=== PATIENT | male | born 1965 | race Caucasian/White ===

== ENCOUNTER 2016-07-18 14:53 | Emergency (ER) | payer OTHER ==
[2016-07-18] MEDS ORDERED: KETOROLAC 60 MG/2 ML VIAL IVP STA (15:25)
[2016-07-18] MEDS ORDERED: ONDANSETRON 4 MG/2 ML VIAL IVP STA ×2 (15:25→16:39)
[2016-07-18] MEDS ORDERED: HYDROmorphone 1 MG/ML SYRINGE IVP STA ×3 (15:25→16:14)
[2016-07-18] MEDS ORDERED: ONDANSETRON 4 MG/2 ML VIAL ONE ×2 (15:27→16:42)
[2016-07-18] MEDS ORDERED: KETOROLAC 30 MG/ML VIAL ONE (15:27)
[2016-07-18] MEDS ORDERED: HYDROmorphone 1 MG/ML SYRINGE ONE ×3 (15:27→16:18)
[2016-07-18] MEDS ORDERED: TAMSULOSIN 0.4 MG CAPSULE PO STA (16:14)
[2016-07-18] MEDS ORDERED: DEXAMETHASONE 10 MG/ML VIAL IVP STA (16:14)
[2016-07-18] MEDS ORDERED: DEXAMETHASONE 10 MG/ML VIAL ONE (16:18)
[2016-07-18] MEDS ORDERED: TAMSULOSIN 0.4 MG CAPSULE ONE (16:18)
== END 2016-07-18 17:06 | disposition home or self-care (01) ==
DX: N13.2 Hydronephrosis with renal and ureteral calculous obstruction (principal); R10.32 Left lower quadrant pain; Z98.1 Arthrodesis status
CPT/HCPCS: 36415; 74176; 80053; 83690; 85025; 96374; 96375; 96376; 99283; 99284; A9270; J1170

== ENCOUNTER 2016-07-20 15:17 | Emergency (ER) | payer OTHER ==
[2016-07-20] MEDS ORDERED: KETOROLAC 60 MG/2 ML VIAL IVP STA (16:25)
[2016-07-20] MEDS ORDERED: KETOROLAC 30 MG/ML VIAL ONE (16:30)
[2016-07-20] MEDS ORDERED: SODIUM CHLORIDE 0.9% 1,000 ML IV ONE (17:31)
== END 2016-07-20 18:58 | disposition home or self-care (01) ==
DX: N13.2 Hydronephrosis with renal and ureteral calculous obstruction (principal)

== ENCOUNTER 2018-07-21 23:04 | Emergency (ER) | payer OTHER ==
[2018-07-21 23:34] LABS: BASOPHILS # (AUTO) 0.1 10^3/uL (0.0-0.1); BASOPHILS % (AUTO) 0.7 %; EOSINOPHILS # (AUTO) 0.2 10^3/uL (0.0-0.7); EOSINOPHILS % (AUTO) 2.7 %; HGB - HEMOGLOBIN 15.2 g/dL (14.0-18.0); LYMPHOCYTES # (AUTO) 3.6 10^3/uL (1.5-3.5); LYMPHOCYTES % (AUTO) 41.8 %; MEAN CORPUSCULAR HGB CONC 35.1 g/dL (32.0-36.0); MEAN CORPUSCULAR VOLUME 82.7 fL (80.0-94.0); MEAN PLATELET VOLUME 6.7 fL (7.4-11.4); MONOCYTES # (AUTO) 0.7 10^3/uL (0.0-1.0); MONOCYTES % (AUTO) 8.1 %; NEUTROPHILS % (AUTO) 46.7 %; PLT - PLATELET COUNT 306 10^3/uL (130-450); RED BLOOD COUNT 5.25 10^6/uL (4.70-6.10); RED CELL DISTRIBUTION WIDTH 13.8 % (12.0-15.0); WHITE BLOOD COUNT 8.6 x10^3/uL (4.8-10.8)
[2018-07-21] MEDS ORDERED: KETOROLAC 30 MG/ML VIAL IVP STA (23:44)
[2018-07-21] MEDS ORDERED: ONDANSETRON 4 MG/2 ML VIAL IVP STA (23:44)
[2018-07-21] MEDS ORDERED: SODIUM CHLORIDE 0.9% 1,000 ML IV ONE (23:44)
[2018-07-21 23:47] LABS: ALBUMIN 4.8 g/dL (3.2-5.5); ALBUMIN/GLOBULIN RATIO 1.7 (1.0-2.2); BILIRUBIN,TOTAL 0.6 mg/dL (0.2-1.0); CALCIUM 9.8 mg/dL (8.5-10.3); CREATININE 1.2 mg/dL (0.6-1.2); TOTAL PROTEIN 7.6 g/dL (6.7-8.2)
--- NOTE | 2018-07-21 23:48 | ED Physician Documentation ---
PD HPI ABD PAIN - Stated complaint Stated Complaint: R SIDE LWR ABD PAIN - Chief complaint Chief Complaint: Abd Pain - History obtained from History obtained from: Patient, Family - History of Present Illness Timing - onset: Today Timing - duration: Minutes Timing - details: Abrupt onset, Still present Quality: Sharp, Pain Location: RLQ Radiation: Right flank Improved by: Other (nothing) Worsened by: Position, Palpation Associated symptoms: Nausea, Vomiting Similar symptoms before: Diagnosis (kidney stone) Recently seen: Clinic - Additional information Additional information: 53-year-old male with a prior history of renal lithiasis has developed acute right lower quadrant abdominal pain radiating to his right flank he states this feels similar to what is had when he had a kidney stone in his left side 2 years ago. He has vomited secondary to the pain. He states that he was well prior to this and that he had been sick last month with cough and congestion. That illness has resolved. Review of Systems Constitutional: denies: Fever Eyes: denies: Decreased vision Ears: denies: Ear pain Nose: denies: Rhinorrhea / runny nose, Congestion Throat: denies: Sore throat Cardiac: denies: Chest pain / pressure, Palpitations Respiratory: denies: Dyspnea, Cough GI: reports: Abdominal Pain, Nausea, Vomiting. denies: Constipation, Diarrhea : denies: Dysuria, Frequency Skin: denies: Rash Musculoskeletal: reports: Back pain. 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 : Kidney stones - Past Surgical History Past Surgical History: Yes General: Appendectomy - Present Medications Home Medications: Ambulatory Orders Medication Instructions Recorded Confirmed Ibuprofen 800 mg PO TID #20 tablet 07/18/16 07/21/18 Gabapentin 300 mg PO PRN PRN 07/21/18 07/21/18 Hydrocodone/Acetaminophen 1 - 2 each PO Q6H PRN #14 tablet 07/22/18 [Hydrocodon-Acetaminophen 5-325] - Allergies Allergies/Adverse Reactions: Allergies Allergy/AdvReac Type Severity Reaction Status Date / Time No Known Drug Allergies Allergy Verified 07/21/18 23:09 - Social History Does the pt smoke?: No Smoking Status: Never smoker Does the pt drink ETOH?: No Does the pt have substance abuse?: No - Immunizations Immunizations are current?: Yes - POLST Patient has POLST: No PD ED PE NORMAL - Vitals Vital signs reviewed: Yes (hypertensive and bradycardic ) - General General: Alert and oriented X 3, Well developed/nourished, Other (diaphoretic male appears to be in pain and is leaning over the sink to vomit ) - HEENT HEENT: Atraumatic, PERRL, EOMI - Neck Neck: Supple, no meningeal sign, No bony TTP - Cardiac Cardiac: RRR, No murmur - Respiratory Respiratory: No respiratory distress, Clear bilaterally - Abdomen Abdomen: Soft, Other (mild right lower quadrant tenderness no tenderness to bimanual palpation of the right kidney or the gallbladder. 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, No motor deficit, No sensory deficit, Normal speech Eye Opening: Spontaneous Motor: Obeys Commands Verbal: Oriented GCS Score: 15 - Psych Psych: Normal mood Results - Vitals Vitals: Vital Signs - 24 hr 07/21/18 07/22/18 23:07 01:12 Temperature 36.5 C 36.3 C L Heart Rate 47 L 48 L Respiratory 17 12 Rate Blood Pressure 185/90 H 141/75 H O2 Saturation 97 99 Oxygen O2 Source Room air - Labs Labs: Laboratory Tests 07/21/18 07/21/18 07/22/18 23:30 23:30 01:42 WBC 8.6 RBC 5.25 Hgb 15.2 Hct 43.4 MCV 82.7 MCH 29.0 MCHC 35.1 RDW 13.8 Plt Count 306 MPV 6.7 L Neut # (Auto) 4.0 Lymph # (Auto) 3.6 H [place] # (Auto) 0.7 Eos # (Auto) 0.2 Baso # (Auto) 0.1 Absolute Nucleated RBC 0.00 Nucleated RBC % 0.0 Sodium 140 Potassium 3.9 Chloride 100 L Carbon Dioxide 27 Anion Gap 13.0 BUN 25 H Creatinine 1.2 Estimated GFR (MDRD) 63 L Glucose 125 H Calcium 9.8 Total Bilirubin 0.6 AST 36 ALT 69 H Alkaline Phosphatase 56 Total Protein 7.6 Albumin 4.8 Globulin 2.8 Albumin/Globulin Ratio 1.7 Lipase 37 Urine Color YELLOW Urine Clarity HAZY Urine pH 5.0 Ur Specific [place] >=1.030 H Urine Protein NEGATIVE Urine Glucose (UA) NEGATIVE Urine Ketones NEGATIVE Urine Occult Blood MODERATE H Urine Nitrite NEGATIVE Urine Bilirubin NEGATIVE Urine Urobilinogen 0.2 (NORMAL) Ur Leukocyte Esterase NEGATIVE Urine RBC 6-10 H Urine WBC 0-3 Ur Squamous Epith Cells RARE Squamous Urine Bacteria None Seen Ur Microscopic Review INDICATED Urine Culture Comments NOT INDICATED - Rads (name of study) CT ab/pel without Radiology: Prelim report reviewed (Impression: 1. Moderately obstructing 3 mm stone at the right ureterovesicular junction. 2 There are 2 nonobstructing right renal stones measuring up to 3 mm. 3 Fatty liver.), EMP read indepedently, See rad report Procedures - Bedside sono Bedside sono by EMP: With use of bedside ultrasound the right kidney is imaged and there is evidence of hydronephrosis. It is sonographically nontender. The gallbladder is imaged as well appears without stone a thin wall it is nondistended and sonographically nontender. PD MEDICAL DECISION MAKING - ED course Complexity details: reviewed old records, reviewed results, re-evaluated patient, considered differential, d/w patient, d/w family ED course: 53-year-old male with a right distal ureteral stone is administered intravenous saline Toradol and Dilaudid and he is eventually able to pass his stone. Departure - Departure Disposition: 01 Home, Self Care Clinical Impression: Ureterolithiasis Condition: Stable Instructions: ED Stone Renal W Colic Follow-Up: KEATON BEVERLY DO [Primary Care Provider] - Prescriptions: Hydrocodone/Acetaminophen [Hydrocodon-Acetaminophen 5-325] 1 - 2 each PO Q6H PRN #14 tablet PRN Reason: pain
--- NOTE | 2018-07-22 00:16 | CT Report ---
Reason: Right flank and right lower quadrant pain Procedure Date: 07/21/2018 Accession Number: [id number] / [id number] Procedure: CT - Abdomen/Pelvis WO CPT Code: FULL RESULT: EXAM: CT ABDOMEN AND PELVIS (CT KUB) EXAM DATE: 07/21/2018 11:59 PM. CLINICAL HISTORY: Right flank and right lower quadrant pain. COMPARISONS: KUB 07/18/2016 3:39 PM. TECHNIQUE: Routine axial helical CT imaging was performed through the abdomen and pelvis without IV contrast. Reconstructions: Coronal and sagittal. In accordance with CT protocol optimization, one or more of the following dose reduction techniques were utilized for this exam: automated exposure control, adjustment of mA and/or KV based on patient size, or use of iterative reconstructive technique. FINDINGS: Lung Bases: Bibasilar atelectasis. Right Kidney/Ureter: There are 2 nonobstructing renal stones measuring up to 3 mm. Moderately obstructing 3 mm stone is seen at the ureterovesical junction. Left Kidney/Ureter: No stones, hydronephrosis, or hydroureter. No perinephric fat stranding. Other Solid Organs: Fatty liver. Spleen, pancreas, and adrenals show no focal abnormalities. Gallbladder/Bile Ducts: Unremarkable. Peritoneal Cavity: No bowel obstruction seen. No diverticulitis. No free air or free fluid. No lymphadenopathy. Appendix is not seen. No evidence of appendicitis. Pelvic Organs: No bladder stones or wall thickening. Noncontrast images of the visualized pelvic organs are unremarkable. Vasculature: Unremarkable. Other: Postoperative changes from L4-S1. IMPRESSION: 1. Moderately obstructing 3 mm stone at the right ureterovesical junction. 2. There are 2 nonobstructing right renal stones measuring up to 3 mm. 3. Fatty liver. RADIA
[2018-07-22] MEDS ORDERED: HYDROmorphone 1 MG/ML CARPUJECT IVP STA ×2 (00:19→01:19)
[2018-07-22] MEDS ORDERED: ONDANSETRON 4 MG/2 ML VIAL IVP STA (02:06)
[2018-07-22 02:14] LABS: BILIRUBIN,URINE NEGATIVE (NEGATIVE); GLUCOSE, URINE (UA) NEGATIVE (NEGATIVE); KETONES,URINE (UA) NEGATIVE (NEGATIVE); LEUKOCYTE ESTERASE, URINE NEGATIVE (NEGATIVE); NITRITE,URINE NEGATIVE (NEGATIVE); OCCULT BLOOD,URINE MODERATE (NEGATIVE); PROTEIN,URINE NEGATIVE (NEGATIVE); UROBILINOGEN,URINE 0.2 (NORMAL) E.U./dL (NORMAL)
[2018-07-22 02:35] LABS: CLARITY,URINE HAZY (CLEAR)
[2018-07-22 02:36] LABS: BACTERIA,URINE None Seen /HPF (None Seen); SQUAMOUS EPITHELIAL CELL,UR RARE Squamous (<= Few)
[2018-07-22 03:09] VITALS: BP 119/74
== END 2018-07-22 03:10 | disposition home or self-care (01) ==
LOC: ED 23:04
DX: N20.1 Calculus of ureter (principal)
CPT/HCPCS: 36415; 74176; 80053; 81001; 83690; 85025; 96361; 96374; 96375; 96376; 99283; 99284; J1170; 81003; 87086

== ENCOUNTER 2021-11-15 06:38 | Emergency (ER) | payer OTHER ==
[2021-11-15 07:06] LABS: BASOPHILS % (AUTO) 0.5 %; EOSINOPHILS # (AUTO) 0.1 10^3/uL (0.0-0.7); HCT - HEMATOCRIT 45.8 % (42.0-52.0); HGB - HEMOGLOBIN 16.2 g/dL (14.0-18.0); LYMPHOCYTES # (AUTO) 2.1 10^3/uL (1.5-3.5); LYMPHOCYTES % (AUTO) 32.3 %; MEAN CORPUSCULAR HGB CONC 35.4 g/dL (32.0-36.0); MEAN CORPUSCULAR VOLUME 81.9 fL (80.0-94.0); MEAN PLATELET VOLUME 9.4 fL (7.4-11.4); MONOCYTES # (AUTO) 0.5 10^3/uL (0.0-1.0); NEUTROPHILS # (AUTO) 3.8 10^3/uL (1.5-6.6); NEUTROPHILS % (AUTO) 57.7 %; PLT - PLATELET COUNT 243 10^3/uL (130-450); RED BLOOD COUNT 5.59 10^6/uL (4.70-6.10); RED CELL DISTRIBUTION WIDTH 12.5 % (12.0-15.0); WHITE BLOOD COUNT 6.6 x10^3/uL (4.8-10.8)
[2021-11-15 07:16] LABS: ALBUMIN 4.5 g/dL (3.2-5.5); ALBUMIN/GLOBULIN RATIO 1.7 (1.0-2.2); BILIRUBIN,TOTAL 0.6 mg/dL (0.2-1.0); CALCIUM 9.4 mg/dL (8.5-10.3); CREATININE 0.9 mg/dL (0.6-1.2); POTASSIUM 4.6 mmol/L (3.5-5.0); TOTAL PROTEIN 7.2 g/dL (6.7-8.2)
[2021-11-15] MEDS ORDERED: ONDANSETRON 4 MG/2 ML VIAL IVP STA (07:21)
[2021-11-15] MEDS ORDERED: KETOROLAC 30 MG/ML VIAL IVP STA ×2 (07:21→08:25)
[2021-11-15] MEDS ORDERED: SODIUM CHLORIDE 0.9% 1,000 ML IV ONE (07:22)
--- NOTE | 2021-11-15 07:23 | ED Physician Documentation ---
PD HPI MALE - Stated complaint Stated Complaint: MALE - Chief complaint Chief Complaint: Abd Pain - History obtained from History obtained from: Patient - History of Present Illness Timing - onset: How many days ago (14) Timing - details: Abrupt onset Pain level max: 8 Associated symptoms: Testiclar pain, Abdominal pain. No: Dysuria, Urinary frequency, Unable to urinate, Scrotal swelling, Back pain - Additional information Additional information: 56-year-old male with no reported past medical history presents from home by private vehicle for 1 day of sudden onset right-sided lower abdominal/testicular pain. Patient states that he had symptoms approximately 2 weeks ago for 7 to 10 days, these resolved spontaneously, however suddenly reappeared this morning. States he had a kidney stone on his left side many years ago, this feels somewhat similar. Associated with nausea and vomiting. Reports previous history of appendectomy. No medications taken at home for symptoms. Denies dysuria, hematuria, testicular swelling Review of Systems Ten Systems: 10 systems reviewed and negative Constitutional: denies: Fever, Chills, Myalgias, Fatigue, Weight Loss, Sweats, Reviewed and negative, Other Eyes: denies: Loss of vision, Decreased vision, Photophobia, Discharge, Irritation, Reviewed and negative, Other Ears: denies: Loss of hearing, Ear pain, Drainage/discharge, Tinnitus/ringing, Foreign body, Reviewed and negative, Other Throat: denies: Dental pain / toothache, Oral lesions / sores, Sore throat, Swollen tonsils, Swallowed foreign body, Reviewed and negative, Other Cardiac: denies: Chest pain / pressure, Palpitations, Pedal edema, Calf pain, Reviewed and negative, Other Respiratory: denies: Dyspnea, Cough, Hemoptysis, Wheezing, Reviewed and negative, Other GI: reports: Abdominal Pain, Nausea, Vomiting, Reviewed and negative. denies: Abdominal Swelling, Constipation, Diarrhea, Hematemesis, Bloody / black stool : reports: Testicular pain. denies: Dysuria, Frequency, Hesitancy, Unable to Void, Testicular mass Skin: denies: Rash, Lesions, Abrasion (s), Laceration (s), Bite / sting, Reviewed and negative, Other Musculoskeletal: denies: Neck pain, Back pain, Extremity pain, Joint pain, Extremity swelling, Joint swelling, Pain with weight bearing, Reviewed and negative, Other Neurologic: denies: Generalized weakness, Focal weakness, Numbness, Difficulty speaking, Near syncope, Syncope, Seizure, Confused, Altered mental status, Unresponsive, Headache, Head injury, LOC, Reviewed and negative, Other Psychiatric: denies: Depressed, Suicidal, Homicidal, Hallucinations, Delusions, Anxiety, Insomnia, Reviewed and negative, Other Endocrine: denies: Polydypsia, Polyuria, Polyphagia, Weight loss, Weight gain, Easy bruising / bleeding, Swollen lymph nodes, Reviewed and negative, Other Immunocompromised: denies: Immunocompromised, HIV/AIDS, Asplenic, Chemotherapy, Transplant, Reviewed and negative, Other PD PAST MEDICAL HISTORY - Past Medical History Past Medical History: Yes Cardiovascular: None Respiratory: None Endocrine/Autoimmune: None GI: 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 : Kidney stones - Past Surgical History Past Surgical History: Yes General: Appendectomy - Present Medications Home Medications: Ambulatory Orders Medication Instructions Recorded Confirmed Ibuprofen 800 mg PO TID #20 tablet 07/18/16 07/21/18 Gabapentin 300 mg PO PRN PRN 07/21/18 07/21/18 Hydrocodone/Acetaminophen 1 - 2 each PO Q6H PRN #14 tablet 07/22/18 [Hydrocodon-Acetaminophen 5-325] Naproxen 500 mg PO BID PRN #15 tablet 11/15/21 Ondansetron Odt [Zofran] 4 mg TL Q6H PRN #10 tablet 11/15/21 Oxycodone HCl/Acetaminophen 1 - 2 each PO Q6H PRN #14 tablet 11/15/21 [Percocet 5-325 mg Tablet] Tamsulosin [Flomax] 0.4 mg PO DAILY #14 cap 11/15/21 - Allergies Allergies/Adverse Reactions: Allergies Allergy/AdvReac Type Severity Reaction Status Date / Time No Known Drug Allergies Allergy Verified 11/15/21 06:47 - Social History Does the pt smoke?: No Smoking Status: Never smoker Does the pt drink ETOH?: No Does the pt have substance abuse?: No - Immunizations Immunizations are current?: Yes - POLST Patient has POLST: No PD ED PE NORMAL - Vitals Vital signs reviewed: Yes - General General: Alert and oriented X 3 - HEENT HEENT: Atraumatic, PERRL, EOMI, Ears normal, Moist mucous membranes, Pharynx benign, Dentition benign, Other - Neck Neck: Supple, no meningeal sign, No bony TTP, No adenopathy - Cardiac Cardiac: RRR, No murmur, No gallop - Respiratory Respiratory: No respiratory distress, Clear bilaterally - Abdomen Abdomen: Normal bowel sounds, Soft, Non tender, Non distended - Male 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 Cremasteric reflex intact, question indirect hernia R.) - Back Back: No CVA TTP, No spinal TTP - Derm Derm: Normal color, Warm and dry, No rash - Extremities Extremities: No deformity, No tenderness to palpate, Normal ROM s pain, No edema - Neuro Neuro: Alert and oriented X 3, glass smoother 2-12 intact, No motor deficit, No sensory de ficit, Normal speech - Psych Psych: Normal mood, Normal affect Results - Vitals Vitals: Vital Signs - 24 hr 11/15/21 11/15/21 06:47 09:09 Temperature 36.3 C L Heart Rate 58 L 44 L Respiratory 15 18 Rate Blood Pressure 181/98 H 182/92 H O2 Saturation 100 100 Oxygen O2 Source Room air - Labs Labs: Laboratory Tests 11/15/21 11/15/21 11/15/21 06:52 06:52 09:05 WBC 6.6 RBC 5.59 Hgb 16.2 Hct 45.8 MCV 81.9 MCH 29.0 MCHC 35.4 RDW 12.5 Plt Count 243 MPV 9.4 Neut # (Auto) 3.8 Lymph # (Auto) 2.1 [place] # (Auto) 0.5 Eos # (Auto) 0.1 Baso # (Auto) 0.0 Absolute Nucleated RBC 0.00 Nucleated RBC % 0.0 Sodium 139 Potassium 4.6 Chloride 103 Carbon Dioxide 26 Anion Gap 10.0 BUN 23 H Creatinine 0.9 Estimated GFR (MDRD) 87 L Glucose 127 H Calcium 9.4 Total Bilirubin 0.6 AST 24 ALT 35 Alkaline Phosphatase 45 Total Protein 7.2 Albumin 4.5 Globulin 2.7 Albumin/Globulin Ratio 1.7 Lipase 33 Urine Color YELLOW Urine Clarity CLEAR Urine pH 6.0 Ur Specific [place] 1.025 Urine Protein NEGATIVE Urine Glucose (UA) NEGATIVE Urine Ketones NEGATIVE Urine Occult Blood LARGE H Urine Nitrite NEGATIVE Urine Bilirubin NEGATIVE Urine Urobilinogen 0.2 (NORMAL) Ur Leukocyte Esterase NEGATIVE Urine RBC TNTC H Urine WBC 0-3 Ur Squamous Epith Cells NONE SEEN Urine Bacteria Few Ur Microscopic Review INDICATED Urine Culture Comments NOT INDICATED PD MEDICAL DECISION MAKING - ED course ED course: Patient presenting for sudden worsening of right-sided abdominal/testicular pain. Patient states this feels somewhat similar to previous kidney stones, however also states that it feels different. Additionally I have concern for possible hernia as the patient is unable to tolerate palpation of the inguinal canal. Testicles are nontender, no swelling, cremasteric reflex is intact, testicles have vertical lie. Patient be given pain, nausea medications as well as IV fluids since he is nauseous and vomited prior to arrival. CT significant for 4 mm kidney stone with mild hydronephrosis. Kidney functions within normal limits. Patient is currently drinking fluids and is resting comfortably in the ED stretcher. Pending urinalysis, if urinalysis is negative will discharge with close follow-up and medications for pain and to aid stone passage. RBCs present on urinalysis, not surprising given that the patient has a stone. Otherwise negative for acute findings. Patient has tolerated p.o, pain co ntrolled. Numerous medication sent to pharmacy. Departure - Departure Disposition: 01 Home, Self Care Clinical Impression: Renal colic Prescriptions: Tamsulosin [Flomax] 0.4 mg PO DAILY #14 cap Naproxen 500 mg PO BID PRN #15 tablet PRN Reason: Pain Oxycodone HCl/Acetaminophen [Percocet 5-325 mg Tablet] 1 - 2 each PO Q6H PRN #14 tablet PRN Reason: pain Ondansetron Odt [Zofran] 4 mg TL Q6H PRN #10 tablet PRN Reason: Nausea / Vomiting
--- NOTE | 2021-11-15 08:44 | CT Report ---
PROCEDURE: Abdomen/Pelvis WO INDICATIONS: R TESTICULAR/ABD PAIN TECHNIQUE: Noncontrast 5 mm thick sections acquired from the diaphragms to the symphysis. 5 mm coronal and sagi ttal reformats were then performed. For radiation dose reduction, the following was used: automated exposure control, adjustment of mA and/or kV according to patient size. COMPARISON: None. FINDINGS: Image quality: Excellent. ABDOMEN: Lung bases: Lung bases are clear. Heart size is normal. Solid organs: Liver and spleen are normal in size. Gallbladder is unremarkable Pancreas is normal in contours. No adrenal nodules. Kidneys are normal in size. There is a punctate right superior bryn al pole calculus. In addition, there is a 4 mm right inferior pole renal calculus, 218. There is a 4 mm proximal right ureteral calculus, Hounsfield unit 693. There is a mild appearance of hydronephrosi s and proximal hydroureter with perinephric and periureteral stranding. Peritoneum and bowel: Unenhanced bowel loops demonstrate normal wall thickness and caliber. No free fluid or air. Nodes and vessels: No retroperitoneal or mesenteric adenopathy by size criteria. Aorta and inferior vena cava are normal in caliber. Miscellaneous: No ventral hernias. PELVIS: Genitourinary: Bladder wall thickness is normal. Miscellaneous: No inguinal hernias or adenopathy. Bones: No suspicious bony lesions. No vertebral body compression fractures. IMPRESSION: 4 mm proximal right ureteral calculus with mild hydronephrosis and hydroureter. Nonobstructing additional right renal calculi as above. Reviewed by: Imani Araiza MD on 11/15/2021 8:43 AM PDT Approved by: Imani Araiza MD on 11/15/2021 8:43 AM PDT Station ID: [id number]
[2021-11-15 09:15] LABS: BILIRUBIN,URINE NEGATIVE (NEGATIVE); CLARITY,URINE CLEAR (CLEAR); GLUCOSE, URINE (UA) NEGATIVE (NEGATIVE); KETONES,URINE (UA) NEGATIVE (NEGATIVE); LEUKOCYTE ESTERASE, URINE NEGATIVE (NEGATIVE); NITRITE,URINE NEGATIVE (NEGATIVE); OCCULT BLOOD,URINE LARGE (NEGATIVE); PROTEIN,URINE NEGATIVE (NEGATIVE); UROBILINOGEN,URINE 0.2 (NORMAL) E.U./dL (NORMAL)
[2021-11-15 09:22] LABS: BACTERIA,URINE Few /HPF (None Seen); RBC,URINE TNTC /HPF (0-5); SQUAMOUS EPITHELIAL CELL,UR NONE SEEN (<= Few); WBC,URINE 0-3 /HPF (0-3)
[2021-11-15] MEDS ORDERED: MORPHINE 2 MG/ML CARPUJECT IVP STA (09:29)
[2021-11-15 10:14] VITALS: BP 150/73
== END 2021-11-15 10:05 | disposition home or self-care (01) ==
LOC: ED 06:38
DX: N13.2 Hydronephrosis with renal and ureteral calculous obstruction (principal)
CPT/HCPCS: 36415; 80053; 81001; 81003; 83690; 85025; 87086; 96374; 96375; 96376; 99284

== ENCOUNTER 2023-10-06 16:16 | Emergency (ER) | payer OTHER ==
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
[2023-10-06] MEDS: KETOROLAC 30 MG/ML VIAL IM STA (17:10)
[2023-10-06] MEDS: HYDROmorphone 1 MG/ML CARPUJECT IM STA (17:10)
[2023-10-06 17:48] VITALS: BP 152/87; O2SAT 100
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
--- NOTE | 2023-10-06 18:51 | XRAY Report ---
PROCEDURE: Ribs w/PA Chest 3+V RT INDICATIONS: R rib pain TECHNIQUE: 2 views of the ribs were acquired, along with a single view chest. COMPARISON: Correlation is made with the accompanying imaging. FINDINGS: Surgical changes and devices: None. Bones and chest wall: There is a comminuted fracture of the right mid clavicle, with moderate displa cement. No definite displaced rib fracture can be seen on these images. No significant chest wall abn ormality is seen. Lungs and pleura: No pleural effusions or pneumothorax. Lungs appear clear. Mediastinum: Mediastinal contours appear normal. Heart size is normal. IMPRESSION: No displaced rib fracture or pneumothorax. There is a comminuted moderately displaced fracture of the right mid clavicle. Reviewed by: Chadd Shepard MD on 10/06/2023 5:50 PM [facility] Approved by: Chadd Shepard MD on 10/06/2023 5:50 PM [facility] Station ID: [id number]
== END 2023-10-06 17:43 | disposition home or self-care (01) ==
LOC: ED 16:16
DX: S20.211A Contusion of right front wall of thorax, initial encounter (principal); S42.017A Nondisplaced fracture of sternal end of right clavicle, initial encounter for closed fracture; V29.888A Rider (driver) (passenger) of other motorcycle injured in other specified transport accidents, initial encounter; Y93.55 Activity, bike riding
CPT/HCPCS: 71101; 73030; 96372; 99284; J1170

== ENCOUNTER 2023-11-24 13:43 | Outpatient (CLI) | payer OTHER ==
--- NOTE | 2023-11-25 08:36 | XRAY Report ---
PROCEDURE: Clavicle RT INDICATIONS: DISPLACED FRACTURE OF SHAFT OF RT CLAVICLE TECHNIQUE: 2 views of the clavicle were acquired. COMPARISON: X-ray right shoulder, 10/06/2023. FINDINGS: Bones: There is a comminuted fracture in the mid clavicular shaft with superior angulation and overr iding fracture fragment. The alignment is unchanged. No suspicious bony lesions. Soft tissues: No suspicious soft tissue calcifications or masses. IMPRESSION: 1. Stable appearance of comminuted mid clavicular shaft fracture. Reviewed by: Ilir Dan MD on 11/25/2023 8:35 AM PDT Approved by: Ilir Dan MD on 11/25/2023 8:35 AM PDT Station ID: [id number]
== END 2023-11-24 13:44 | disposition home or self-care (01) ==
LOC: DI.N 13:43
PROVIDERS: ATTEND Orthopaedic Surgery
DX: S42.021D Displaced fracture of shaft of right clavicle, subsequent encounter for fracture with routine healing (principal)